=== PATIENT | female | born 1985 | race Caucasian/White ===

== ENCOUNTER 2017-08-31 08:15 | Outpatient (RCR) | payer BC ==
--- NOTE | 2017-08-29 12:49 | PT INITIAL EVALUATION ---
MEDICAL DIAGNOSIS: Vestibular Disorder TREATMENT DIAGNOSIS: Vestibular Disorder DATE OF ONSET: 08/21/17 SUBJECTIVE: Mabel is a 32 year-old female presenting to physical therapy following recent onset of vertigo. Pt reports that she's had vertigo in the past that has been off and on, however recently it was so bad that it would wake her up at night because she would be nauseas and feeling dizzy. Pt reports no history of trauma but does report neck pain which was treated by a chiropractor 2 weeks ago. Pt denies any pain or headache. REHAB PROBLEM LIST: Impaired Bed Mobility Impaired Transfers Decreased Balance Decreased Function Decreased ADL's Decreased Mobility Decreased Gait PREVIOUS MEDICAL HISTORY: See EMR OCCUPATION: Works for the [employer] OBJECTIVE: Pt has occasional nystagmus at rest that comes and goes, pupilary constriction and relaxation is present at rest as well without change in visual focus. Special Tests: Vetebral Artery Testing (-) B. Mobility: Dianne Hallpike L (+), R (-), pupilary constriction and dizziness with return from supine to seated B. Other Objective Findings: Vision not checked in >1.5 years. ASSESSMENT: Pt shows signs and symptoms consistent with BPPV. Physical therapy is indicate to correct the above listed deficits to return pt to PLOF without dizziness or nausea. Short Term Goals In 1 week pt will have a (-) L Dianne Hallpike indicating improved functional mobility with transfers and ADL's. In 2 weeks pt will report no dizziness with ADL's for improved function. Patient's Goals Decrease dizziness and nausea associated with positional changes. PLAN: Patient to be seen for Spinal Stabilization Neuromuscular Re-ed Posture/Body mechanics Gait Trg/Balance Trg Home Exercise Program 3x/Week for 2 Weeks If you have any questions, comments, or concerns about this report or plan, please contact me at . Thank you, Kerrie Anne, PT, DPT, CLT [facility]
[~2017-08-31 08:15] MED LIST: ALPR-434 PO; METH-543 PO
--- NOTE | 2017-09-30 09:06 | PT PLAN OF CARE ---
Physician: YVETTE Sanford Patient is being seen: 2x/Week Therapist: Kerrie Anne, PT, DPT, CLT Medical Diagnosis: Vestibular Disorder Treatment Diagnosis: Vestibular Disorder Date of Onset: 08/21/17 Date of Initial Evaluation: 08/27/17 Date patient was last seen: 08/31/17 Number of treatments: 2 Number of cancellations/No shows: 0 INTERVENTIONS: Spinal Stabilization Neuromuscular Re-ed Posture/Body mechanics Gait Trg/Balance Trg Home Exercise Program GOALS: In 1 week pt will have a (-) L Dianne Hallpike indicating improved functional mobility with transfers and ADL's. MET In 2 weeks pt will report no dizziness with ADL's for improved function. MET PATIENT'S GOAL: Decrease dizziness and nausea associated with positional changes. Status of Patient's Goals: 2/2 MET Patient Compliance: Excellent Prognosis: Good Reasons for discharge from therapy: Mabel is to discharge from physical therapy at this time having completed 2/2 functional goals. At the time of discharge pt reported that she had no symptoms of dizziness and was returned to full level of functioning. Special Tests: Vertebral Artery Testing (-) B. Dianne Hallpike L (-), R (-) If you have any questions or concerns, please feel free to contact me at . Thank you, Kerrie Anne, PT, DPT, CLT [facility]
== END 2017-08-31 18:00 | disposition home or self-care (01) ==
LOC: PT 08:15
PROVIDERS: ATTEND Nurse Practitioner Family
DX: H83.2X9 Labyrinthine dysfunction, unspecified ear (principal)
CPT/HCPCS: 97161